=== PATIENT | male | born 1995 | race Caucasian/White ===

== ENCOUNTER 2019-04-25 14:05 | Emergency (ER) | payer SELFPAY ==
[~2019-04-25] VITALS: Ht 193 cm; Wt 77.1 kg
[~2019-04-25 14:05] MED LIST: Crutch1 EACH MISC; Floxin10 ML LEFTEAR; IBUP800 PO; Norco 5-325 Ta1 EACH PO; Percocet 5-3251 EACH PO
[2019-04-25] MEDS ORDERED: NAPR550 PO (15:36)
[2019-04-25] MEDS ORDERED: Amoxicillin875 MG PO (15:36)
== END 2019-04-25 15:39 | disposition home or self-care (01) ==
LOC: ER 14:05
DX: H60.92 Unspecified otitis externa, left ear (principal); Z87.891 Personal history of nicotine dependence
CPT/HCPCS: 99282